=== PATIENT | male | born 1970 | race Caucasian/White ===

== ENCOUNTER → 2018-06-28 | Outpatient (CLI) | payer OTHER ==
[2018-06-28] MEDS: GADOBUTROL 10 MMOL/10 ML VIAL IV ONE (12:01)
--- NOTE | 2018-06-28 14:02 | KCIC ---
MRI study of the left thigh with and without contrast Clinical indications: Mass of the upper left thigh. Mass has been present for about one year and is tender at times. TECHNIQUE: Pre and postcontrast enhanced MRI sequences of the upper left thigh in the region of the palpable mass was performed in all 3 planes. A total of 9 cc of Gadavist was given intravenously. COMPARISON: None available. FINDINGS: There is an elliptical subcutaneous soft tissue mass which is deep to the skin surface by 1 cm and is superficial to the muscular superficial fascia. It measures 7.7 cm transversely and 8.6 cm vertically and 2.0 cm in AP dimension. Most of the mass is intermediate to increased density on the T1-weighted images and bright signal intensity in the T2-weighted images. There is a peripheral low signal rim around the mass. This is consistent with a hematoma. However, within the lateral aspect of the mass, there is an area of more decreased signal on the T1-weighted images which enhances. This nodular area of enhancement measures 1.3 cm in greatest dimension. There is some more capsular type enhancement extending from this lesion anteriorly. No feeding vessels are seen extending into the lesion. A prominent varicosity is evident. The underlying muscle and bone are normal. IMPRESSION: Subcutaneous soft tissue hematoma as discussed above. There is a peripheral enhancing nodule with some mild capsular enhancement. Therefore, hematoma could be secondary to bleeding from a lesion. A hemangioma is a possibility. A small soft tissue sarcoma or inflammatory lesion that has bled is in the differential diagnosis as well. Electronically signed by: Judson Hansen MD (06/28/2018 1:59 PM) [id number]
== END | disposition home or self-care (01) ==
LOC: KCIC MRI 11:16
PROVIDERS: ATTEND Orthopaedic Surgery
DX: M79.81 Nontraumatic hematoma of soft tissue (principal); R22.42 Localized swelling, mass and lump, left lower limb
CPT/HCPCS: 73720; A9585